=== PATIENT | male | born 1930 | race Two or more races ===

== ENCOUNTER 2018-04-26 08:40 | Emergency (ER) | payer OTHER ==
[~2018-04-26] VITALS: Ht 172.7 cm; Wt 89.8 kg
[2018-04-26 08:46] VITALS: Ht 172.7 cm; Wt 89.8 kg
[2018-04-26] MEDS ORDERED: SOD CHLORIDE 0.9% 1,000 ML IV STA (09:10)
--- NOTE | 2018-04-26 09:24 | ERD ---
ER Documentation Chief Complaint Chief Complaint DIARRHEA X2 DAYS HPI 87-year-old male visiting from [place] with a history of diabetes, [id number] who presents to the emergency room with diarrhea. He describes 48 hours of symptoms of loose or watery stools. Multiple times per day. He states normal urine output. No abdominal pain or cramping no nausea or vomiting. He denies any recent travel, sick contacts, antibiotics. He has tried Imodium with only mild relief. ROS All systems reviewed and are negative except as per history of present illness. Medications Home Meds Reported Medications Ramipril (Ramipril) 2.5 Mg Capsule, 2.5 MG PO DAILY, CAP 04/26/18 Pravastatin Sodium* (Pravastatin Sodium*) 40 Mg Tablet, 40 MG PO HS, TAB 04/26/18 Omeprazole* (Omeprazole*) 20 Mg Capsule.dr, 20 MG PO AC BREAKFAST, #30 CAP 04/26/18 Metoprolol Succinate* (Toprol XL*) 50 Mg Tab.er.24h, 50 MG PO DAILY, #30 TAB 04/26/18 Sitagliptin* (Januvia*) 100 Mg Tablet, 100 MG PO DAILY, #30 TAB 04/26/18 Gabapentin* (Gabapentin*) 400 Mg Capsule, 400 MG PO TID, #90 CAP 04/26/18 Fluticasone Propionate* (Fluticasone Propionate* Nasal) 50 Mcg/[place] - 16 Gm [place].susp, 2 SPRAYS NASAL DAILY, #1 BOTTLE TO EACH NOSTRIL 04/26/18 Finasteride* (Finasteride*) 5 Mg Tablet, 5 MG PO DAILY, TAB 04/26/18 Aspirin* (Aspirin* EC) 81 Mg Tablet.dr, 81 MG PO DAILY, TAB 04/26/18 Allopurinol* (Allopurinol*) 100 Mg Tablet, 100 MG PO DAILY, TAB 04/26/18 Allergies Allergies: Coded Allergies: Penicillins (Verified Allergy, Severe, 04/26/18) Sulfa (Sulfonamide Antibiotics) (Verified Allergy, Severe, 04/26/18) quinine (Verified Allergy, Severe, 04/26/18) FmHx Family History: diabetes Physical Exam Vitals Vital Signs Date Temp Pulse Resp B/P (MAP) Pulse Ox O2 O2 Flow FiO2 Time Delivery Rate 04/26/18 98.0 101 18 161/81 96 08:46 (107) Physical Exam General: Well developed, well nourished, no acute distress Head: Normocephalic, atraumatic. Eyes: Pupils equally reactive, EOM intact ENT: Moist mucous membranes Neck: Supple, no lymphadenopathy Respiratory: Lungs clear bilaterally, no distress Cardiovascular: RRR, no murmurs, rubs, or gallops Abdominal: Soft, non-tender, non-distended, no peritoneal signs : Deferred MSK: No edema, no unilateral swelling, 5/5 strength Neurologic: Alert and oriented, moving all extremities, normal speech, no focal weakness, no cerebellar signs Skin: No rash Psych: Normal mood Result Diagram: 04/26/18 0910 04/26/18909 Results 24 hrs Laboratory Tests Test 04/26/18 09:10 White Blood Count 4.8 10^3/ul Red Blood Count 4.84 10^6/ul Hemoglobin 15.6 g/dl Hematocrit 45.8 % Mean Corpuscular Volume 94.6 fl Mean Corpuscular Hemoglobin 32.2 pg Mean Corpuscular Hemoglobin Concent 34.1 g/dl Red Cell Distribution Width 13.7 % Platelet Count 198 10^3/UL Mean Platelet Volume 8.8 fl Immature Granulocytes % 0.200 % Neutrophils % 75.2 % Lymphocytes % 13.7 % Monocytes % 9.9 % Eosinophils % 0.8 % Basophils % 0.2 % Nucleated Red Blood Cells % 0.0 /100WBC Immature Granulocytes # 0.010 10^3/ul Neutrophils # 3.6 10^3/ul Lymphocytes # 0.7 10^3/ul Monocytes # 0.5 10^3/ul Eosinophils # 0.0 10^3/ul Basophils # 0.0 10^3/ul Nucleated Red Blood Cells # 0.0 10^3/ul Sodium Level 142 mmol/L Potassium Level 4.1 mmol/L Chloride Level 103 mmol/L Carbon Dioxide Level 22 mmol/L Anion Gap 17 Blood Urea Nitrogen 23 mg/dl Creatinine 1.11 mg/dl Est Glomerular Filtrat Rate mL/min mL/min Glucose Level 225 mg/dl Calcium Level 9.8 mg/dl Current Medications Medications Dose Sig/[place] Start Time Status Last (Trade) Ordered Route PRN Stop Time Admin Dose Reason Admin Sodium 1,000 ml @ Q1H STAT 04/26/18 DC 04/26/18 Chloride 1,000 mls/hr IV 09:10 09:20 04/26/18 10:09 Procedures/MDM LAB INTERPRETATION: * CBC reveals no evidence of serious bacterial infection * Chem reveals slight hyperglycemia but no DKA, no severe dehydration MEDICAL DECISION MAKING: The patient presents with diarrheal illness almost certainly viral in etiology. He has a benign abdominal exam. No risk factors for bacterial diarrhea or C. difficile colitis. I would have a low threshold to scan this patient given his age however he is a very benign abdominal exam. He has a reassuring presentation and vital signs. At this point CT is not indicated though laboratory testing to rule out severe dehydration, electrolyte disturbance or significant leukocytosis would be appropriate given the patient's age. Symptom control recommended. Probiotics recommended. ER COURSE: * The patient continues to be well-appearing. His laboratory testing shows no evidence of red flags concerning for serious bacterial infection * At this point expectant management on an outpatient basis would be appropriate. The patient was advised to try probiotics. Return precautions were discussed. * No indication for antibiotics CONSULTATION: None DISPOSITION PLAN: The patient does not have an identifiable emergent medical condition that warrants inpatient hospitalization at this time. The patient is deemed safe for discharge with outpatient follow-up. We discussed follow up with the patient's primary care doctor within 24 to 48 hours as needed. We also discussed return to the emergency room for worsening symptoms or worsening condition. Outpatient referral: None required Discharge Medications: Probiotics OTC Departure Diagnosis: Primary Impression: Diarrhea Diarrhea type: unspecified type Qualified Codes: R19.7 - Diarrhea, unspecified Condition: Stable MIROSLAVA MORA MD Apr 26, 2018 09:24
[2018-04-26] MEDS ORDERED: ASPI-817 PO (09:28)
[2018-04-26] MEDS ORDERED: ALLO100T PO (09:28)
[2018-04-26] MEDS ORDERED: FINA5TAB4 PO (09:28)
[2018-04-26] MEDS ORDERED: SITA100T11 PO (09:29)
[2018-04-26] MEDS ORDERED: METO-319 PO (09:29)
[2018-04-26] MEDS ORDERED: GABA400C14 PO (09:29)
[2018-04-26] MEDS ORDERED: FLUT16SP17 NASAL (09:29)
[2018-04-26] MEDS ORDERED: OMEP20CA16 PO (09:30)
[2018-04-26] MEDS ORDERED: PRAV40TA76 PO (09:30)
[2018-04-26] MEDS ORDERED: RAMI2.5C36 PO (09:30)
[2018-04-26 11:42] VITALS: BP 132/86; PULSE 86; RESP 20
== END 2018-04-26 12:00 | disposition home or self-care (01) ==
LOC: E/R 08:40
DX: R19.7 Diarrhea, unspecified (principal); E11.9 Type 2 diabetes mellitus without complications; Z79.82 Long term (current) use of aspirin
CPT/HCPCS: 36415; 80048; 85025; 99284; J7030